=== PATIENT | female | born 1995 | race Caucasian/White ===

== ENCOUNTER 2021-10-11 02:43 | Emergency (ER) | payer OTHER ==
[~2021-10-11] VITALS: Ht 165.1 cm; Wt 86.2 kg
[2021-10-11 02:55] VITALS: BP 132/78
--- NOTE | 2021-10-11 05:51 | NUR ---
PT WALKED TO BED 7
--- NOTE | 2021-10-11 06:03 | NUR ---
Dr. Branch examining patient.
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
[2021-10-11] MEDS ORDERED: ACETAMINOPHEN 325 MG TAB PO ONE (06:10)
[2021-10-11] MEDS ORDERED: IBUP-1842 PO (06:10)
[2021-10-11 06:20] VITALS: BP 115/78
== END 2021-10-11 06:20 | disposition home or self-care (01) ==
LOC: MED 02:43
DX: S39.012A Strain of muscle, fascia and tendon of lower back, initial encounter (principal); S29.9XXA Unspecified injury of thorax, initial encounter; Z72.89 Other problems related to lifestyle; Z98.890 Other specified postprocedural states; V49.88XA Car occupant (driver) (passenger) injured in other specified transport accidents, initial encounter; Y93.89 Activity, other specified; Y92.89 Other specified places as the place of occurrence of the external cause; Y99.8 Other external cause status
CPT/HCPCS: 99282